=== PATIENT | female | born 1960 | race Caucasian/White ===

== ENCOUNTER 2023-06-25 13:42 | Emergency (ER) | payer MEDICAID ==
[~2023-06-25] VITALS: Ht 149.9 cm; Wt 45.4 kg
[2023-06-25 13:48] VITALS: BP_SYST 142; PULSE 88; RESP 18; TEMP 98.3; O2SAT 98
[2023-06-25] MEDS ORDERED: BACITRACIN 1 GM OINT TP ONE ×2 (14:30→14:33)
[2023-06-25] MEDS ORDERED: KETOROLAC TROMETHAMINE 60 MG/2 ML VIAL IM ONE (14:30)
[2023-06-25] MEDS ORDERED: NAPR-690 PO (14:53)
[2023-06-25 15:08] VITALS: BP_SYST 142; PULSE 88; RESP 18; TEMP 98.3; O2SAT 98
== END 2023-06-25 15:08 | disposition home or self-care (01) ==
LOC: SED 13:42
DX: S13.4XXA Sprain of ligaments of cervical spine, initial encounter (principal); S50.311A Abrasion of right elbow, initial encounter; S60.416A Abrasion of right little finger, initial encounter; Z79.899 Other long term (current) drug therapy; X58.XXXA Exposure to other specified factors, initial encounter; Y93.89 Activity, other specified; Y92.89 Other specified places as the place of occurrence of the external cause; Y99.8 Other external cause status
CPT/HCPCS: 99283; 96372; J1885; J7030